=== PATIENT | female | born 1990 | race American Indian/Alaskan Native ===

== ENCOUNTER 2017-08-12 16:07 | Emergency (ER) | payer OTHER ==
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
[2017-08-12] MEDS ORDERED: ULTRAM PO ONE (20:18)
[2017-08-12 21:06] VITALS: BP 118/72
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
== END 2017-08-12 21:04 | disposition home or self-care (01) ==
LOC: ED 16:07
DX: S39.012A Strain of muscle, fascia and tendon of lower back, initial encounter (principal); G43.009 Migraine without aura, not intractable, without status migrainosus; M54.5 Low back pain; V49.59XA Passenger injured in collision with other motor vehicles in traffic accident, initial encounter; Y93.89 Activity, other specified; Y99.8 Other external cause status; Y92.488 Other paved roadways as the place of occurrence of the external cause
CPT/HCPCS: 70450; 99283